=== PATIENT | male | born 2000 | race Two or more races ===

== ENCOUNTER 2023-12-25 11:19 | Emergency (ER) | payer MEDICAID, OTHER ==
[~2023-12-25] VITALS: Ht 167.6 cm; Wt 83.8 kg
[2023-12-25 13:03] VITALS: BP 151/99; PULSE 81; RESP 18; TEMP 99; O2SAT 98
[2023-12-25] MEDS ORDERED: PRED20TA2 PO (13:13)
[2023-12-25] MEDS ORDERED: FLUT1SPR5 (13:13)
== END 2023-12-25 13:21 | disposition home or self-care (01) ==
LOC: ER 11:19
DX: R09.81 Nasal congestion (principal)